=== PATIENT | male | born 1965 | race African-American/Black ===

== ENCOUNTER 2022-11-20 17:21 | Emergency (ER) | payer OTHER ==
[~2022-11-20] VITALS: Ht 177.8 cm; Wt 94.8 kg
[2022-11-20] MEDS ORDERED: LISINOPRIL (17:36)
[2022-11-20 18:00] LABS: HEMATOCRIT 41.1 % (36.7-47.1); MEAN CORPUSCULAR HEMOGLOBIN 25.7 uug (23.8-33.4); MEAN CORPUSCULAR VOLUME 79.2 fL (73.0-96.2); PLATELET COUNT (AUTO) 285 K/uL (152-348)
[2022-11-20 18:20] LABS: CARBON DIOXIDE 28 mmol/L (21-32); CHLORIDE 103 mmol/L (98-107); CREATININE 1.2 mg/dL (0.6-1.3); GLUCOSE 128 mg/dL (74-106); POTASSIUM 3.1 mmol/L (3.5-5.1); UREA NITROGEN, BLOOD 17 mg/dL (7-18)
[2022-11-20] MEDS ORDERED: hydrALAZINE HCL 20 MG/1 ML VIAL IV ONE (19:15)
[2022-11-20] MEDS ORDERED: ASPIRIN 81 MG TAB.CHEW PO ONE (19:15)
[2022-11-20] MEDS ORDERED: ASPIRIN 81 MG TAB.CHEW ONE (19:21)
[2022-11-20] MEDS ORDERED: hydrALAZINE HCL 20 MG/1 ML VIAL ONE (19:21)
[2022-11-20] MEDS ORDERED: POTASSIUM CHLORIDE 20 MEQ TAB.PRT.SR PO ONE (20:45)
[2022-11-20] MEDS ORDERED: POTASSIUM CHLORIDE 20 MEQ TAB.PRT.SR ONE (21:16)
[2022-11-20 22:02] VITALS: BP 157/91
[2022-11-20] MEDS ORDERED: LISI10TA29 PO (23:30)
[2022-11-20] MEDS ORDERED: ATEN50TA PO (23:30)
== END 2022-11-20 22:03 | disposition home or self-care (01) ==
LOC: ER 17:23
DX: R07.9 Chest pain, unspecified (principal); I10 Essential (primary) hypertension; Z91.14 Patient's other noncompliance with medication regimen; E87.6 Hypokalemia
CPT/HCPCS: 36415; 71045; 84484; 85025; 93005; A4663; J0360

== ENCOUNTER 2023-05-03 13:35 | Emergency (ER) | payer OTHER ==
[~2023-05-03] VITALS: Ht 177.8 cm; Wt 97.5 kg
[~2023-05-03 13:35] MED LIST: ATEN50TA PO; LISI10TA29 PO; LISINOPRIL
[2023-05-03] MEDS ORDERED: HYDR-3980 PO (13:59)
[2023-05-03] MEDS ORDERED: NAPR-1009 PO (13:59)
[2023-05-03] MEDS ORDERED: KETOROLAC TROMETHAMINE 30 MG INJ ONE (14:00)
[2023-05-03] MEDS ORDERED: KETOROLAC TROMETHAMINE 30 MG INJ IM ONE (14:00)
[2023-05-03] MEDS ORDERED: ATEN50TA PO (14:06)
[2023-05-03] MEDS ORDERED: LISI10TA29 PO (14:06)
[2023-05-03 14:23] VITALS: BP 160/90; TEMP 98; O2SAT 99
== END 2023-05-03 14:20 | disposition home or self-care (01) ==
LOC: ER 13:35
DX: M54.9 Dorsalgia, unspecified (principal); I10 Essential (primary) hypertension; Z79.899 Other long term (current) drug therapy
CPT/HCPCS: 99283; 96372; J1885; A4663

== ENCOUNTER 2025-05-11 12:02 | Emergency (ER) | payer MEDICAID, OTHER ==
[~2025-05-11] VITALS: Ht 177.8 cm; Wt 87.5 kg
[~2025-05-11 12:02] MED LIST changes: +HYDR-3980 PO; +NAPR-1009 PO
[2025-05-11 12:10] VITALS: BP 137/81
[2025-05-11] MEDS ORDERED: LIDOCAINE HCL 1% 20 ML VIAL ONE (12:49)
[2025-05-11] MEDS ORDERED: CEFD300C3 PO (13:18)
[2025-05-11 13:32] VITALS: BP 135/85; TEMP 97.8; O2SAT 99
== END 2025-05-11 13:33 | disposition home or self-care (01) ==
LOC: ER 12:02
DX: H00.14 Chalazion left upper eyelid (principal); I11.9 Hypertensive heart disease without heart failure; Z79.899 Other long term (current) drug therapy
CPT/HCPCS: 67700; 99284; J3490; A4606; A4663